=== PATIENT | male | born 1950 | race Caucasian/White ===

== ENCOUNTER 2019-11-21 09:05 | Observation (INO) | payer MEDICARE, OTHER ==
[2019-11-21 09:38] LABS: BASOPHILS # (AUTO) 0.1 10^3/uL (0.0-0.1); BASOPHILS % (AUTO) 0.7 %; EOSINOPHILS # (AUTO) 0.1 10^3/uL (0.0-0.7); EOSINOPHILS % (AUTO) 0.7 %; HGB - HEMOGLOBIN 14.8 g/dL (14.0-18.0); LYMPHOCYTES % (AUTO) 14.2 %; MEAN CORPUSCULAR HEMOGLOBIN 29.4 pg (27.0-31.0); MEAN CORPUSCULAR HGB CONC 32.8 g/dL (32.0-36.0); MEAN CORPUSCULAR VOLUME 89.5 fL (80.0-94.0); MEAN PLATELET VOLUME 8.8 fL (7.4-11.4); MONOCYTES # (AUTO) 0.5 10^3/uL (0.0-1.0); MONOCYTES % (AUTO) 6.7 %; NEUTROPHILS # (AUTO) 5.4 10^3/uL (1.5-6.6); NEUTROPHILS % (AUTO) 77.3 %; PLT - PLATELET COUNT 347 10^3/uL (130-450); RED BLOOD COUNT 5.04 10^6/uL (4.70-6.10); RED CELL DISTRIBUTION WIDTH 13.6 % (12.0-15.0)
[2019-11-21 09:51] LABS: BILIRUBIN,URINE NEGATIVE (NEGATIVE); GLUCOSE, URINE (UA) NEGATIVE (NEGATIVE); KETONES,URINE (UA) NEGATIVE (NEGATIVE); LEUKOCYTE ESTERASE, URINE NEGATIVE (NEGATIVE); NITRITE,URINE NEGATIVE (NEGATIVE); OCCULT BLOOD,URINE NEGATIVE (NEGATIVE); PH,URINE 6.5 PH (5.0-7.5); PROTEIN,URINE NEGATIVE (NEGATIVE); UROBILINOGEN,URINE 0.2 (NORMAL) E.U./dL (NORMAL)
[2019-11-21 09:51] LABS: ALBUMIN 3.8 g/dL (3.2-5.5); ALBUMIN/GLOBULIN RATIO 1.1 (1.0-2.2); BILIRUBIN,TOTAL 0.5 mg/dL (0.2-1.0); CALCIUM 9.3 mg/dL (8.5-10.3); CREATININE 1.1 mg/dL (0.6-1.2); TOTAL PROTEIN 7.2 g/dL (6.7-8.2)
[2019-11-21 09:53] LABS: CLARITY,URINE CLEAR (CLEAR)
--- NOTE | 2019-11-21 10:03 | CT Report ---
PROCEDURE: ANGIO NECK W INDICATIONS: L sided facial droop, L neck pain CONTRAST: IV CONTRAST: Optiray 320 ml: 80 PO CONTRAST: *NO PO CONTRAST TECHNIQUE: After the administration of intravenous contrast, 1.5 mm axial sections acquired from the aortic arch to the [place]. Coronal 3-D maximum intensity projection (MIP) and/or volume rendering ref ormats were then performed. For radiation dose reduction, the following was used: automated exposur e control, adjustment of mA and/or kV according to patient size. COMPARISON: None. FINDINGS: Image quality: Excellent. Carotid system: The great vessels demonstrate a conventional anatomy as they arise from the aortic a rch. The origins of the common carotid arteries appear patent. The common carotid arteries demonstr ate normal calibers and courses. The bifurcation regions appear normal bilaterally. The internal ca rotid arteries demonstrate normal caliber and course. Posterior circulation: The origins of the vertebral arteries appear patent. The more superior porti ons of the vertebral arteries demonstrate normal course and caliber. They join to form a normal appe aring basilar artery. Soft tissues: Lungs are not ideally evaluated secondary to respiratory motion artifact. Within this l imitation, there are numerous irregular mixed groundglass and solid nodules in both lung apices. Visc eral soft tissue structures of the neck are within normal limits. Bones: No suspicious lytic or blastic osseous lesion. Vertebral body height and alignment are within normal limits. Degenerative changes in the mid cervical spine. IMPRESSION: No flow-limiting stenosis of the carotid systems or vertebral arteries. Numerous irregular mixed groundglass and solid nodules in both lung apices. CT of the chest with IV c ontrast is recommended. The estimate of stenosis included in the report of the imaging study was calculated using the NASCET method Reviewed by: Emir Rosa MD on 11/21/2019 10:02 AM PDT Approved by: Emir Rosa MD on 11/21/2019 10:02 AM PDT Station ID: [id number]
--- NOTE | 2019-11-21 10:06 | CT Report ---
PROCEDURE: ANGIO HEAD W/WO INDICATIONS: L sided facial droop CONTRAST: IV CONTRAST: Optiray 320 ml: 80 PO CONTRAST: *NO PO CONTRAST TECHNIQUE: Precontrast 4.5 mm thick angled axial sections acquired from the foramen magnum to the vertex. Afte r the administration of intravenous contrast, 1 mm thick sections acquired through the [place] of [place] is. Postcontrast 4.5 mm thick sections then re-acquired from the foramen magnum to the vertex. 3-di mensional lrjoolw-zqezrtvhj-sewgmqkdav (MIP) and/or volume rendering reformats were acquired of the c entral intracranial vasculature. For radiation dose reduction, the following was used: automated ex posure control, adjustment of mA and/or kV according to patient size. COMPARISON: Correlation is made with the accompanying CT angiogram of the neck, 11/21/2019. FINDINGS: Image quality: Excellent. Anterior circulation: Intracranial internal carotid arteries are normal in size and flow. The flow within the paired anterior cerebral arteries is normal and symmetric. The flow within the middle cer ebral arteries is normal and symmetric. The anterior communicating artery is seen. No aneurysms are seen. Posterior circulation: Visualized portions of the vertebral arteries demonstrate normal caliber, and join to form a normal appearing basilar artery. Incidental note is made of a prominent right dry house tender ior communicating artery, with a diminutive right P1 segment. 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 Flow within the posterior cerebral arteries is normal and symmetric. No aneurysms are seen. CSF spaces: Ventricles are normal in size and shape. Basal cisterns are patent. No extra-axial flu id collections. Brain: No midline shift. No intracranial bleeds or masses. Reilly-white matter interface appears int act. Skull and face: Calvarium and facial bones appear intact, without suspicious lesions. In this patie nt with the given clinical history of left-sided facial droop, scrutiny is given to the course of the left facial nerve, including within the the left parotid gland. No chris abnormality is seen. Sinuses: Visualized sinuses and mastoids are clear. IMPRESSION: No significant intracranial abnormality is seen. No significant intracranial arterial abnormalities are seen. If it would be helpful for clinical management decision making, please consider a dedicated brain MRI for further evaluation (assuming that there is no contraindication). Reviewed by: Jae Aggarwal MD on 11/21/2019 9:05 AM [facility] Approved by: Jae Aggarwal MD on 11/21/2019 9:05 AM [facility] Station ID: [id number]
[2019-11-21] MEDS ORDERED: IOVERSOL 320 100 ML VIAL IVP ONE ×2 (10:12→10:18)
--- NOTE | 2019-11-21 11:58 | ED Physician Documentation ---
PD HPI FOCAL NEURO - Stated complaint Stated Complaint: RT BODY NUMBNESS - Chief complaint Chief Complaint: Neuro - History obtained from History obtained from: Patient, Family - History of Present Illness Timing - onset: Enter time (829), Today Timing - duration: Minutes Timing - details: Abrupt onset, Still present Severity of deficit: Moderate Weakness: No: Face, Arm, Hand, Leg, Foot, Right, Left Numbness: Face, Arm, Hand, Leg, Foot, Left Associated symptoms: No: Headache, Nausea / vomiting, Seizure, Syncope, Fall, Head injury, Chest pain, Neck pain, Back pain, Fever Contributing factors: positive: Anticoagulated (on plavix) Baseline status: positive: A&OX3, ambulatory, indep Similar symptoms before: Has not had sx before Recently seen: Not recently seen - Additional information Additional information: 69-year-old male with a history of coronary stenting in March of this year for [place] is visiting here from [place] and he has been here since yesterday and this morning he was sitting out on his brothers porch and he went to get up and found that his right leg was numb.He denied any motor component to this. When he noted that he had some numbness in his right arm and then up to the corner of his right eye he became concerned and is come to the emergency department. He called 911 and at the time they arrived most of the numbness to his upper extremity and face were resolved. He continues to have numbness to his right lower extremity especially over the ankle and between the ankle and knee. Review of Systems Constitutional: denies: Fever, Chills Eyes: denies: Decreased vision Ears: denies: Loss of hearing, Ear pain Nose: denies: Rhinorrhea / runny nose, Congestion Throat: denies: Sore throat Cardiac: denies: Chest pain / pressure, Palpitations Respiratory: denies: Dyspnea, Cough GI: denies: Abdominal Pain, Nausea, Vomiting, Constipation, Diarrhea : denies: Dysuria, Frequency Skin: denies: Rash Musculoskeletal: denies: Neck pain, Back pain, Extremity pain Neurologic: reports: Numbness. denies: Generalized weakness, Focal weakness, Difficulty speaking, Near syncope, Syncope, Seizure, Confused, Altered mental status, Headache, Head injury, LOC PD PAST MEDICAL HISTORY - Past Medical History Past Medical History: Yes Cardiovascular: [place] Respiratory: None Neuro: None Endocrine/Autoimmune: None GI: None : None HEENT: None Psych: None Musculoskeletal: None Derm: None - Past Surgical History Past Surgical History: Yes General: Appendectomy Ortho: Rotator cuff repair HEENT: Cataracts, Other - Allergies Allergies/Adverse Reactions: Allergies Allergy/AdvReac Type Severity Reaction Status Date / Time No Known Drug Allergies Allergy Verified 11/21/19 09:11 - Social History Does the pt smoke?: No Smoking Status: Never smoker Does the pt drink ETOH?: No Does the pt have substance abuse?: No Substance Use and Type: Marijuana - Immunizations Immunizations are current?: Yes PD ED PE NORMAL - Vitals Vital signs reviewed: Yes (Hypertensive diastolic) - General General: Alert and oriented X 3, No acute distress, Well developed/nourished - HEENT HEENT: Atraumatic, PERRL, EOMI - Neck Neck: Supple, no meningeal sign, No bony TTP - Cardiac Cardiac: RRR, No murmur - Respiratory Respiratory: No respiratory distress, Clear bilaterally - Abdomen Abdomen: Normal bowel sounds, Soft, Non tender, Non distended, No organomegaly - Back Back: No CVA TTP, No spinal TTP - Derm Derm: Normal color, Warm and dry, No rash - Extremities Extremities: No deformity, No edema - Neuro Neuro: Alert and oriented X 3, 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, No motor deficit, No sensory deficit, Normal speech Eye Opening: Spontaneous Motor: Obeys Commands Verbal: Oriented GCS Score: 15 - Psych Psych: Normal mood, Normal affect NIHSS - Time Time: 09:20 - Level of Consciousness Level of consciousness: (0) Alert, Keenly responsive LOC Questions: (0) Answers both Q's correct LOC Commands: (0) Performs both correctly - Gaze Best Gaze: (0) Normal - Visual Visual: (0) No loss - Facial Palsy Facial Palsy: (0) Normal, symmetrical movement - Motor Arms (both separate) Motor Arm (right): (0) No drift Motor Arm (left): (0) No drift - Motor Legs (both separate) Motor Leg (right): (0) No drift Motor Leg (left): (0) No drift - Limb Ataxia Limb Ataxia: (0) Absent - Sensory Sensory: (1) Hieb-yq-lzryehmp loss - Best Language Best Language: (0) No aphasia - Dysarthria Dysarthria: (0) Normal - Extinction and Inattention (formally neg Extinction and inattention: (0) No abnormality - Total Score/Results Total Score/Result: 1 Results - Vitals Vitals: Vital Signs - 24 hr 11/21/19 11/21/19 11/21/19 09:11 09:44 10:06 Temperature 36.8 C 36.4 C L Heart Rate 85 78 73 Respiratory 16 14 20 Rate Blood Pressure 117/99 H 120/74 134/65 H O2 Saturation 99 100 99 11/21/19 11/21/19 11/21/19 10:28 10:30 11:00 Temperature Heart Rate 74 76 71 Respiratory 12 16 20 Rate Blood Pressure 107/60 116/56 L 124/63 O2 Saturation 98 99 99 11/21/19 11/21/19 11:30 12:00 Temperature Heart Rate 73 70 Respiratory 16 16 Rate Blood Pressure 123/66 115/78 O2 Saturation 99 100 Oxygen O2 Source Room air - EKG (time done) 0920 Rate: Rate (enter#) (81) Intervals: RBBB Ischemia: Other (minimal ST elevation in V6) Compare to prior EKG: Old EKG unavailable Computer interpretation: Agree with computer - Labs Labs: Laboratory Tests 11/21/19 11/21/19 11/21/19 09:26 09:26 09:26 WBC 7.0 RBC 5.04 Hgb 14.8 Hct 45.1 MCV 89.5 MCH 29.4 MCHC 32.8 RDW 13.6 Plt Count 347 MPV 8.8 Neut # (Auto) 5.4 Lymph # (Auto) 1.[address] # (Auto) 0.5 Eos # (Auto) 0.1 Baso # (Auto) 0.1 Absolute Nucleated RBC 0.00 Nucleated RBC % 0.0 Sodium 140 Potassium 3.7 Chloride 103 Carbon Dioxide 27 Anion Gap 10.0 BUN 15 Creatinine 1.1 Estimated GFR (MDRD) 67 L Glucose 87 Lactic Acid 1.6 Calcium 9.3 Total Bilirubin 0.5 AST 16 ALT 17 Alkaline Phosphatase 71 Total Protein 7.2 Albumin 3.8 Globulin 3.4 Albumin/Globulin Ratio 1.1 Lipase 26 Urine Color Urine Clarity Urine pH Ur Specific [place] Urine Protein Urine Glucose (UA) Urine Ketones Urine Occult Blood Urine Nitrite Urine Bilirubin Urine Urobilinogen Ur Leukocyte Esterase Ur Microscopic Review Urine Culture Comments 11/21/19 Unknown WBC RBC Hgb Hct MCV MCH MCHC RDW Plt Count MPV Neut # (Auto) Lymph # (Auto) [place] # (Auto) Eos # (Auto) Baso # (Auto) Absolute Nucleated RBC Nucleated RBC % Sodium Potassium Chloride Carbon Dioxide Anion Gap BUN Creatinine Estimated GFR (MDRD) Glucose Lactic Acid Calcium Total Bilirubin AST ALT Alkaline Phosphatase Total Protein Albumin Globulin Albumin/Globulin Ratio Lipase Urine Color YELLOW Urine Clarity CLEAR Urine pH 6.5 Ur Specific [place] 1.010 Urine Protein NEGATIVE Urine Glucose (UA) NEGATIVE Urine Ketones NEGATIVE Urine Occult Blood NEGATIVE Urine Nitrite NEGATIVE Urine Bilirubin NEGATIVE Urine Urobilinogen 0.2 (NORMAL) Ur Leukocyte Esterase NEGATIVE Ur Microscopic Review NOT INDICATED Urine Culture Comments NOT INDICATED - Rads (name of study) CTA head Radiology: Prelim report reviewed, EMP read indepedently, See rad report CTA neck Radiology: Prelim report reviewed (Impression: No flow-limiting stenosis of the carotid systems or vertebral arteries. Numerous irregular mixed groundglass and solid nodules in both lung apices. CT of chest with IV contrast is recommended.), EMP read indepedently, See rad report PD MEDICAL DECISION MAKING - ED course Complexity details: reviewed results, re-evaluated patient, considered differential, d/w patient, d/w family ED course: 69-year-old male with acute onset of right lower extremity numbness followed by right upper extremity and facial numbness has resolution of the facial and arm numbness and continues to have some numbness to the right foot. He has no other focal deficits and preliminary studies CTA of the head and neck are unremarkable. Departure - Departure Disposition: ED Place in Observation Clinical Impression: Cerebrovascular accident (CVA) Qualifiers: CVA mechanism: unspecified Qualified Code(s): I63.9 - Cerebral infarction, unspecified Condition: Stable
[2019-11-21] MEDS ORDERED: ACETAMINOPHEN 325 MG TABLET PO PRN (13:05)
[2019-11-21] MEDS ORDERED: SODIUM CHLORIDE FLUSH 0.9% 10 ML SYRINGE IVP PRN (13:05)
[2019-11-21] MEDS ORDERED: ONDANSETRON 4 MG/2 ML VIAL IVP PRN (13:05)
[2019-11-21] MEDS ORDERED: ATORVASTATIN 40 MG TABLET PO STA (13:16)
[2019-11-21] MEDS ORDERED: ASPIRIN CHEW 81 MG TABLET PO STA (13:16)
[2019-11-21] MEDS ORDERED: LORazepam 2 MG/ML VIAL IVP PRN (16:03)
[2019-11-21] MEDS: CLOPIDOGREL 75 MG TABLET PO SCH (16:44)
--- NOTE | 2019-11-21 17:03 | PHARMACY PROGRESS NOTE ---
- Best Possible Medication History Admit Date and Time: 11/21/19 9358 Processed by: Pharmacy Medication History completed: Yes Patient Interview: Completed Secondary Source(s): Insurance records As the person ultimately responsible for medication therapy, providers are able to order a medication from an existing home medication list in [facility] via the "Reconcile Routine" prior to Confirmation of that medication by operations support specialist. Such practice is discouraged except when the physician, in their clinical judgment, deems that a medical need exists for a medication without regard to previous use.
[2019-11-21] MEDS: SODIUM CHLORIDE FLUSH 0.9% 10 ML SYRINGE IVP SCH ×2 (18:02→23:56)
[2019-11-21] MEDS ORDERED: LORazepam 2 MG/ML VIAL IVP STA (18:30)
--- NOTE | 2019-11-21 19:40 | MRI Report ---
PROCEDURE: Brain W/O INDICATIONS: TIA TECHNIQUE: Noncontrast axial T1 spin echo, axial T2 fast spin echo, sagittal and axial FLAIR, coronal T2 fast sp in echo, axial gradient echo, axial diffusion and ADC through the brain. COMPARISON: None. FINDINGS: Image quality: Limited by patient motion artifact. CSF Spaces: Basal cisterns are patent. No extra-axial fluid collections. Ventricles are normal in size and shape. Brain: No intracranial masses or hemorrhage. Reilly/white matter interface is normal. There is mild, diffuse cerebral volume loss. There are minimal periventricular and subcortical white matter clinical data lesser ischemic changes. Brainstem appears normal. Diffusion-weighted images demonstrate no ac wainwright ischemic insult. No chronic ischemic insults. Normal intravascular flow voids are present. Skull and face: Calvarium has normal marrow signal. Orbits appear normal. Sinuses: Sinuses and mastoids are clear. IMPRESSION: 1. No acute intracranial disease process. 2. No areas of acute or chronic infarction. 3. No intracranial hemorrhage. Reviewed by: Jackelyn Barba MD, PhD on 11/21/2019 7:38 PM PDT Approved by: Jackelyn Barba MD, PhD on 11/21/2019 7:38 PM PDT Station ID: [id number]
--- NOTE | 2019-11-21 19:45 | HISTORY & PHYSICAL EXAMINATION ---
DATE OF SERVICE: 11/21/2019 Physician: Katya Ames MD HISTORY OF PRESENT ILLNESS: This is a 69-year-old white male with a history of old [place] in 03/2019, wh o underwent angiography and required stent placement and has been compliant with his medications, com pleted 36 weeks of cardiac rehabilitation and continues to exercise on his own. The patient is visit ing here from [place], [place] and today while he was having coffee, seated, he stood up and sta viridiana that his right leg felt like it "fell asleep" This then quickly progressed to having his entire r ight leg numb, then his right arm numb and then part of his right face. With this, he presented to [facility] Emergency Room. At that point, the numbness had resolved to just lasting in the leg. He underwen t CTA of the head and neck and no major abnormalities were found and he is being placed in Observatio n for workup of a TIA. The patient states that now the numbness is localized to just his right great toe and second toe. He has never had symptoms like this before. He denies any other concurrent sym ptoms. ALLERGIES: None. MEDICATIONS 1. Metoprolol tartrate 25 mg daily. 2. Lipitor 20 mg daily. 3. Baby aspirin daily. 4. Plavix 75 mg daily. FAMILY HISTORY: His brother had hypertension and a hemorrhagic brain bleed. Another brother had smo judy history and cardiomyopathy and from CHF. SOCIAL HISTORY: The patient is a nonsmoker, who never smoked, drinks no alcohol. No illicit drug us e history. Lives with his . He is retired. He is compliant with his medications, he states. REVIEW OF SYSTEMS: The patient states that he was on Brilinta initially post-cardiac stent placement and then this was changed to Plavix, because there was concern that he had side effects from the Aviva linta. He believes that the side effects were "malaise." He describes the malaise as an overall feel ing of weakness but no pain or lightheadedness, or motor or sensory deficit. Approximately 3 months ago, his statin medication was decreased to 20 mg daily because of muscle aches and muscle weakness. The patient denies any anginal symptoms or CHF symptoms, does not have palpitations or lightheadedne ss or syncope history. A comprehensive review of systems was performed and the pertinent positives a re listed; the rest are negative. PHYSICAL EXAM GENERAL: White male, who is in no distress, supine in bed. VITAL SIGNS: Blood pressure 130/60, heart rate 76 in sinus rhythm, afebrile and room air saturation 100%. 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 NECK: No carotid bruits. No JVD. CHEST: Clear. HEART: Normal heart sounds without murmur. ABDOMEN: Soft with positive bowel sounds, nontender. No organomegaly. EXTREMITIES: No clubbing, cyanosis or edema. NEUROLOGIC: Numbness of the right great toe and next toe. Otherwise, a normal neuro exam grossly. LABORATORY DATA: Normal electrolytes. Normal BUN and creatinine. Lactic acid normal at 1.6. Tropo constantine normal at 3.3. Lipase normal. White blood count 7, hemoglobin 14, platelet count normal. No IN R was done. Urinalysis unremarkable. EKG: Normal sinus rhythm, right bundle branch block, vertical axis. IMAGING: CTA of the head showed no abnormality. CTA of the neck showed normal vertebral and carotid flow. CTA of the neck was able to image the apices of the lungs and this was read as having numerous irregular, mixed ground-glass and solid nodules in both lung apices and a CT of the chest with contr ast is recommended IMPRESSION/DIAGNOSES 1. Transient ischemic attack versus stroke with symptoms now persisting approximately 10-12 hours. 2. Old myocardial infarction. 3. History of coronary artery disease 4. Right bundle branch block. 5. Malaise. 6. Lung nodules. PLAN: Place the patient in Observation status on telemetry to watch for atrial fibrillation. Obtain an echo to evaluate for an intracardiac source of embolus or shunt. 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 Continue with his beta magalie medication and Plavix. Chew 4 baby aspirins stat a nd Lipitor 80 mg to be given stat, then he may return to his baby aspirin plus Lipitor dose daily. O btain a fasting lipid panel in the morning. Since the patient was already on aspirin plus Plavix at the time of this event, he may be a Plavix nonresponder. The plan would be to talk to Neurology rega rding choice of anticoagulant versus antiplatelet agent, in light of this TIA/stroke. The CT lung nod ule findings should have workup as an outpatient. DEEP VENOUS THROMBOSIS PROPHYLAXIS: SCDs. CODE STATUS: FULL CODE. ATTESTATION: The patient is expected to be discharged or transferred to another facility within 96 h ours: Yes. TD: 11/21/2019 16:49
[2019-11-21] MEDS: FAMOTIDINE 20 MG TABLET PO SCH (21:41)
[2019-11-22 06:41] LABS: CHOL/HDL RATIO 3.1 (<5.0); CHOLESTEROL 153 mg/dL; HDL CHOLESTEROL 49 mg/dL; LDL CHOLESTEROL,CALCULATED 90 mg/dL; LDL/HDL RATIO 1.8 (<3.6); VLDL CHOLESTEROL 14 mg/dL
--- NOTE | 2019-11-22 07:57 | Discharge Plan ---
Discharge Plan Problem Reviewed?: Yes Disposition: Home, Self Care Condition: Stable Prescriptions: Atorvastatin Calcium 40 mg PO DAILY #60 tab Diet: Cardiac Activity Restrictions: Activity as Tolerated Shower Restrictions: No Driving Restrictions: No Health Concerns: You were hospitalized in Observation status to evaluate a TIA (neurologic deficit that reversed). The brain and neck imaging showed no areas of significant blood vessel blockage or any bleeding in the brain or evidence of stroke. The brain MRI confirmed this, and there has been no old stroke. The cardiac Echo showed normal heart function and no clot or shunt in the heart. The Neurologist on-call at advised that you stay on the daily aspirin and Plavix, also that you increase your statin to bring down the LDL to < 70 (yours LDL was 90), and that you have a 14 or 30-day heart monitor to check for atrial fibrillation. This should be ordered by your PCP or [facility] and done as an outpatient. An additional finding from your imaging was that the top of your lungs have numerous irregular nodules, and a work-up was advised, by getting an outpatient CT scan, done with iv contrast dye, of the entire chest. This point was summarized for your PCP to order, in your discharge summary. Please resume all your pre-hospital medications. A copy of the lipid panel and findings in your chest were supplied for you to take to your doctors. Plan of Treatment: As above. Care Goals: Improvement in symptoms and stabilization are the goals. Assessment: The patient and understand and are agreeable with the plan. Additional Instructions or Follow Up instructions: If you have new or worsening symptoms, call your PCP or [facility] for advice or come to the ER. No Smoking: If you smoke, Please STOP! Call for help. Follow-up with: Provider,Other [Primary Care Provider] -
[2019-11-22] MEDS: FAMOTIDINE 20 MG TABLET PO SCH (08:13)
[2019-11-22] MEDS: SODIUM CHLORIDE FLUSH 0.9% 10 ML SYRINGE IVP SCH (08:14)
[2019-11-22] MEDS: CLOPIDOGREL 75 MG TABLET PO SCH (08:14)
[2019-11-22] MEDS ORDERED: METOPROLOL TARTRATE 25 MG TABLET PO SCH (09:00)
[2019-11-22] MEDS ORDERED: ASPIRIN EC 81 MG TABLET PO SCH (09:00)
[2019-11-22] MEDS ORDERED: METOPROLOL SUCCINATE 25 MG TABLET PO SCH (09:00)
--- NOTE | 2019-11-22 14:27 | DISCHARGE SUMMARY ---
Discharge Summary Admit Date: 11/21/19 Discharge Date: 11/22/19 Discharging Provider: Dr Katya Ames Code Status: Attempt Resuscitation Condition at Discharge: Stable Discharge Disposition: 01 Home, Self Care - HPI History of Present Illness: This is a 69 y/o white male, visiting [facility], lives in [place], [place], with a history of CA an 03/2019 and received coronary stents, is on aspirin and Plavix, plus Metoprolol and a statin. Today he stood up, and noticed numbness of his R leg, then R arm and part of his R face. He presented to the ER, and the numbness was resolving, and affecting his R toes only at that point. He underwent imaging with CTA of head and neck which had no stroke, no hemorrhage, no stenoses seen. He is being placed in Observation for further evaluation of a TIA. - HOSPITAL COURSE Hospital Course: 1) TIA His toe numbness resolved by the following morning. He was on telemetry and no Afib was seen. He underwent a resting Echo which showed no intracardiac clot or shunt, and normal LVEF without regional wall motion abnormalities. A brain MRI also showed no infarct. TI spoke to the Neurologist on-call at , regaeding choice of anti-thrombotic agent, and he advised to keep the patient on the daily aspirin and Plavix, also that he increase the statin dose to bring down the LDL to < 70, and that he have a 14 or 30-day outpatient heart monitor to look for atrial fibrillation. 2) Old CA Echo showed no LV scar. He was kept on his same meds and management post-CA. 3) History of CAD He was kept on his same meds and management post-CA. 4) RBBB There was no prior EKG at this facility for comparison. 5) Malaise The patient gave a description of several old episodes of generalized "malaise" which had no etiology found. He had none while here. Perhaps these were different symptoms of TIA as well. 6) Hyperlipidemia His fasting lipid panel showed an LDL of 90, and goal is under 70 . He was advised to resume the 40 mg dose of Lipitor, which had been decreased sometime ago to 20 mg. A copy of the lipid panel was supplied to take to his doctors. 7) Lung nodules The neck imaging saw his lung apices, and several nodules were seen bilaterally and reported. This requires further outpatient evaluation with an outpatient CT scan, done with iv contrast dye, of the entire chest, he was told, and copies of the CT report was given to him to take to his doctors. - ALLERGIES Allergies/Adverse Reactions: Allergies Allergy/AdvReac Type Severity Reaction Status Date / Time No Known Drug Allergies Allergy Verified 11/21/19 09:11 - MEDICATIONS Home Medications: Ambulatory Orders Medication Instructions Recorded Confirmed Aspirin Chewable [[facility] [place] 81 mg PO DAILY 11/21/19 11/21/19 Aspirin] Clopidogrel Bisulfate [Clopidogrel] 75 mg PO DAILY 11/21/19 11/21/19 Magnesium 250 mg PO DAILY 11/21/19 11/21/19 Metoprolol Tartrate [Lopressor] 6.25 mg PO BID 11/21/19 11/21/19 Potassium Chloride [Klor-Con 8] 8 meq PO DAILY 11/21/19 11/21/19 Atorvastatin Calcium 40 mg PO DAILY #60 tab 11/22/19 - PHYSICAL EXAM AT DISCHARGE General Appearance: positive: No acute distress, Alert Eyes Bilateral: positive: Normal inspection, EOMI ENT: positive: ENT inspection nml, No signs of dehydration Neck: positive: Nml inspection, No JVD Respiratory: positive: No respiratory distress, Breath sounds nml Cardiovascular: positive: Regular rate & rhythm, No murmur Abdomen: positive: Non-tender, No distention Skin: positive: Warm, Dry Extremities: positive: No pedal edema Neurologic/Psychiatric: positive: Oriented x3, Sensation nml - LABS Result Diagrams: 11/21/19 09:26 11/21/19 09:26 - DIAGNOSTIC IMAGING Diagnostic Imaging Results: Final report reviewed - FOLLOW UP Follow Up: See PCP and Art Consultant (in his hometown) for further evaluation and management. - TIME SPENT Time Spent in Discharge (Minutes): 30
[2019-11-22 14:40] VITALS: BP 116/69
[2019-11-22] MEDS ORDERED: ATORVASTATIN 40 MG TABLET PO SCH (21:00)
== END 2019-11-22 14:40 | disposition home or self-care (01) ==
LOC: SUATTDRO 09:05 → ED 09:05 → MS2 13:05
PROVIDERS: ADMIT Internal Medicine; ATTEND Internal Medicine
DX: G45.9 Transient cerebral ischemic attack, unspecified (principal); I45.10 Unspecified right bundle-branch block; E78.5 Hyperlipidemia, unspecified; I25.10 Atherosclerotic heart disease of native coronary artery without angina pectoris; R91.8 Other nonspecific abnormal finding of lung field; R29.701 NIHSS score 1; Z95.5 Presence of coronary angioplasty implant and graft; Z79.82 Long term (current) use of aspirin; Z79.02 Long term (current) use of antithrombotics/antiplatelets; Z79.899 Other long term (current) drug therapy; I25.2 Old myocardial infarction
CPT/HCPCS: 36415; 70496; 70498; 70551; 80053; 80061; 81003; 83605; 83690; 84484; 85025; 93005; 93306; 96374; 96376; 97161; 99285; A9270; G0378; J2060; Q9967; 81001; 83721; 87086